=== PATIENT | female | born 1965 | race Caucasian/White ===

== ENCOUNTER 2021-02-11 15:19 | Emergency (ER) | payer OTHER ==
[~2021-02-11 15:19] MED LIST: ALBUTEROL2.5 MG/3 M NEB; ATIVAN0.5 MG PO; DEXILANT30 MG PO; FLONASE ALLER15.8 ML; LEVAQUIN500 MG PO; LYRICA100 MG PO; PRAVACHOL20 MG PO; PRINIVIL10 MG PO; SPIRIVA 18MCG18 MCG INH; SYMBICORT 1601 PUFFS INH; TRAZODONE 100M100 MG PO; VENTOLIN HFA IN18 GM INH; VIIBRYD40 MG PO; VOLTAREN **OUT50 MG PO; WELLBUTRIN75 MG PO
[2021-02-11 16:19] LABS: BASOPHIL 0.4 % (0-2); EOSINOPHIL 4.8 % (0-5); HCT 39.1 % (37.0-47.0); HGB 12.6 g/dl (12.5-16.0); LYMPHOCYTE 34.5 % (15-48); MCH 27.4 pg (25.0-31.0); MCHC 32.2 g/dL (32.0-36.0); MONOCYTE 4.2 % (0-12); NEUTROPHIL 55.7 % (41-80); NRBC 0; PLT 207 K/uL (150-400); RDW 13.7 % (11.5-14.0); WBC 7.4 K/uL (4.0-10.5)
[2021-02-11 16:49] LABS: BILIRUBIN NEGATIVE (NEGATIVE); BLOOD NEGATIVE Ery/uL (NEGATIVE); CLARITY CLEAR (CLEAR); COLOR YELLOW (YELLOW); GLUCOSE (U) NORMAL (NORMAL); LEUKOCYTES 1+ Leu/uL (NEGATIVE); NITRITE NEGATIVE (NEGATIVE); PROTEIN NEGATIVE (NEGATIVE); SPECIFIC GRAVITY 1.015 (1.001-1.030); UROBILINOGEN 0.2 mg/dL (0.2-1.0); pH 6.5 (5.0-9.0)
[2021-02-11 16:52] LABS: BACTERIA 1+
[2021-02-11 16:55] LABS: BUN/CREAT RATIO (CALC) 21.1 RATIO; CREATININE 0.9 mg/dL (0.51-0.95)
== END 2021-02-11 20:01 | disposition home or self-care (01) ==
LOC: FER 15:19
PROVIDERS: Nurse Practitioner Family
DX: G43.909 Migraine, unspecified, not intractable, without status migrainosus (principal); I10 Essential (primary) hypertension; J44.9 Chronic obstructive pulmonary disease, unspecified
CPT/HCPCS: 36415; 70450; 80048; 81001; 85025; 87088; J1100; J1170; J1885; J2060; J2405; J7030

== ENCOUNTER 2021-02-14 19:54 | Emergency (ER) | payer OTHER | END 2021-02-15 00:03 | disposition home or self-care (01) | LOC: FER 19:54 | DX: G43.909 Migraine, unspecified, not intractable, without status migrainosus (principal); I10 Essential (primary) hypertension; J44.9 Chronic obstructive pulmonary disease, unspecified | CPT/HCPCS: 96372; J0780; J1100; J1200; J1885; J2405; J3030; J7030 ==

== ENCOUNTER 2021-05-18 16:57 | Emergency (ER) | payer OTHER ==
[2021-05-18 22:09] LABS: BASOPHIL 0.4 % (0-2); EOSINOPHIL 2.6 % (0-5); HGB 14.3 g/dl (12.5-16.0); LYMPHOCYTE 30.9 % (15-48); MCH 27.8 pg (25.0-31.0); MCHC 32.5 g/dL (32.0-36.0); MCV 85.4 fL (78.0-100.0); MONOCYTE 4.8 % (0-12); MPV 11.6 fL (6.0-9.5); NEUTROPHIL 61.1 % (41-80); NRBC 0; PLT 266 K/uL (150-400); RBC 5.15 M/uL (4.20-5.40); RDW 13.2 % (11.5-14.0); WBC 10.3 K/uL (4.0-10.5)
[2021-05-18 22:34] LABS: ALBUMIN 4.3 g/dL (3.4-5.0); BILIRUBIN - TOTAL 0.5 mg/dL (0.2-1.0); BUN/CREAT RATIO (CALC) 14.9 RATIO; CREATININE 0.87 mg/dL (0.51-0.95); GLOBULIN (CALCULATION) 3.8 g/dL; POTASSIUM 3.4 mmol/L (3.5-5.1); TOTAL PROTEIN 8.1 g/dL (6.4-8.2)
== END 2021-05-18 23:35 | disposition home or self-care (01) ==
LOC: FER 16:57
PROVIDERS: Nurse Practitioner Family
DX: G43.909 Migraine, unspecified, not intractable, without status migrainosus (principal); I10 Essential (primary) hypertension; J44.9 Chronic obstructive pulmonary disease, unspecified
CPT/HCPCS: 36415; 80053; 85025; J1100; J1885; J2405; J7030

== ENCOUNTER 2021-10-12 11:36 | Emergency (ER) | payer OTHER ==
[2021-10-12 14:13] LABS: CLARITY (FLUID) CLEAR; COLOR (FLUID) COLORLESS
[2021-10-12 14:14] LABS: RBC (FLUID) 2 RBC/uL; WBC (FLUID) 0 WBC/uL
== END 2021-10-12 15:35 | disposition home or self-care (01) ==
LOC: FER 11:36
PROVIDERS: Emergency Medicine
DX: M54.81 Occipital neuralgia (principal); I10 Essential (primary) hypertension; J44.9 Chronic obstructive pulmonary disease, unspecified
CPT/HCPCS: 36415; 70450; 82945; 84155; 87070; 87205; 89051; 96372; 96374; 96375; J1885; J2405

== ENCOUNTER 2021-10-13 11:34 | Emergency (ER) | payer OTHER ==
[2021-10-13 13:34] LABS: BASOPHIL 0.1 % (0-2); EOSINOPHIL 0.6 % (0-5); HCT 42.9 % (37.0-47.0); HGB 14.1 g/dl (12.5-16.0); LYMPHOCYTE 28.5 % (15-48); MCH 28.4 pg (25.0-31.0); MCHC 32.9 g/dL (32.0-36.0); MCV 86.5 fL (78.0-100.0); MONOCYTE 4.4 % (0-12); MPV 12.4 fL (6.0-9.5); NEUTROPHIL 66.1 % (41-80); NRBC 0; PLT 225 K/uL (150-400); RBC 4.96 M/uL (4.20-5.40); RDW 12.6 % (11.5-14.0); WBC 7.8 K/uL (4.0-10.5)
[2021-10-13 13:38] LABS: BILIRUBIN NEGATIVE (NEGATIVE); BLOOD NEGATIVE Ery/uL (NEGATIVE); CLARITY CLEAR (CLEAR); COLOR YELLOW (YELLOW); GLUCOSE (U) NORMAL (NORMAL); LEUKOCYTES NEGATIVE Leu/uL (NEGATIVE); NITRITE NEGATIVE (NEGATIVE); PROTEIN NEGATIVE (NEGATIVE); UROBILINOGEN 0.2 mg/dL (0.2-1.0)
[2021-10-13 13:46] LABS: BUN/CREAT RATIO (CALC) 13.5 RATIO; CREATININE 0.96 mg/dL (0.51-0.95); POTASSIUM 3.4 mmol/L (3.5-5.1)
== END 2021-10-13 15:32 | disposition home or self-care (01) ==
LOC: FER 11:34
PROVIDERS: Nurse Practitioner Family
DX: G43.909 Migraine, unspecified, not intractable, without status migrainosus (principal); J44.9 Chronic obstructive pulmonary disease, unspecified
CPT/HCPCS: 36415; 80048; 81003; 85025; J1100; J1200; J1885; J2405

== ENCOUNTER 2021-10-14 14:59 | Emergency (ER) | payer OTHER | END 2021-10-14 20:30 | disposition home or self-care (01) | LOC: FER 14:59 | DX: G43.001 Migraine without aura, not intractable, with status migrainosus (principal) | CPT/HCPCS: J1170; J1200; J2765; J7030 ==